=== PATIENT | female | born 1945 | race Caucasian/White ===

== ENCOUNTER 2018-10-13 09:09 | Emergency (ER) | payer MEDICARE, OTHER ==
[~2018-10-13] VITALS: Ht 152.4 cm; Wt 65.8 kg
[2018-10-13 09:09] VITALS: BP 123/88
[~2018-10-13 09:09] MED LIST: ARIP1SOL2 PO; DULO20CA PO; IBAN2.5T PO; MECL-118 PO
[2018-10-13] MEDS ORDERED: predniSONE 20 MG TABLET ONE (09:56)
[2018-10-13] MEDS ORDERED: FAMOTIDINE (20 MG) 20 MG TABLET ONE (09:56)
[2018-10-13] MEDS ORDERED: diphenhydrAMINE HCL 50 MG CAPSULE ONE (09:56)
[2018-10-13] MEDS ORDERED: predniSONE 10 MG TABLET PO ONE (10:00)
[2018-10-13] MEDS ORDERED: diphenhydrAMINE HCL 50 MG CAPSULE PO ONE (10:00)
[2018-10-13] MEDS ORDERED: FAMOTIDINE (20 MG) 20 MG TABLET PO ONE (10:00)
== END 2018-10-13 11:10 | disposition home or self-care (01) ==
LOC: ER 09:10
DX: L23.2 Allergic contact dermatitis due to cosmetics (principal); F32.9 Major depressive disorder, single episode, unspecified
CPT/HCPCS: 99284; J7512; Q0163

== ENCOUNTER 2020-09-11 12:36 | Emergency (ER) | payer MEDICARE, OTHER ==
[~2020-09-11] VITALS: Ht 157.5 cm; Wt 73.0 kg
[2020-09-11 12:40] VITALS: BP 124/83
--- NOTE | 2020-09-11 12:49 | NUR ---
SEEN AND EXAMINED BY .
[2020-09-11] MEDS ORDERED: ACETAMINOPHEN ES 500 MG TABLET ONE (12:57)
[2020-09-11] MEDS ORDERED: ACETAMINOPHEN ES 500 MG TABLET PO ONE (13:00)
--- NOTE | 2020-09-11 14:00 | NUR ---
Patient discharged to home in stable condition. Written and verbal after care instructions given. Patient verbalizes understanding of instruction.
== END 2020-09-11 14:01 | disposition home or self-care (01) ==
LOC: ER 12:37
DX: M54.6 Pain in thoracic spine (principal); M54.2 Cervicalgia; R51.9 Headache, unspecified; F32.9 Major depressive disorder, single episode, unspecified; Z79.899 Other long term (current) drug therapy; V49.49XA Driver injured in collision with other motor vehicles in traffic accident, initial encounter; Y93.89 Activity, other specified; Y92.488 Other paved roadways as the place of occurrence of the external cause; Y99.8 Other external cause status
CPT/HCPCS: 71045-TC; 72050-TC